=== PATIENT | male | born 1935 | race Caucasian/White ===

== ENCOUNTER 2017-05-14 08:30 | Inpatient (IN) | payer OTHER ==
[~2017-05-14] VITALS: Ht 152.4 cm; Wt 73.5 kg
[2017-05-14] MEDS ORDERED: AVAPRO150 MG PO (09:45)
[2017-05-14] MEDS ORDERED: JANUVIA100 MG PO (09:45)
[2017-05-14] MEDS ORDERED: NORVASC5 MG PO (09:46)
[2017-05-14] MEDS ORDERED: LIPIT PO (09:46)
[2017-05-14] MEDS ORDERED: ARICEPT PO (09:46)
[2017-05-14] MEDS ORDERED: AVAIR (09:48)
[2017-05-16] MEDS ORDERED: GABAPENTIN800 MG PO (13:49)
[2017-05-16] MEDS ORDERED: CLONAZEPAM1 MG PO (13:49)
[2017-05-16] MEDS ORDERED: PERCOCET 5-3251 EACH PO (13:49)
[2017-05-16] MEDS ORDERED: AMOXICILLIN875 MG PO (13:49)
[2017-05-16] MEDS ORDERED: DOCUSATE SODIU100 MG PO (13:49)
== END 2017-05-16 14:14 | disposition home or self-care (01) | DRG 455 ==
LOC: PED 05-15 05:15 → O/R 05-15 05:15 → PED 05-15 17:04 → SURH 05-20 08:30
PROVIDERS: Orthopaedic Surgery Orthopaedic Surgery of the Spine
PROC: 0SG1071 Fusion of 2 or more Lumbar Vertebral Joints with Autologous Tissue Substitute, Posterior Approach, Posterior Column, Open Approach (ICD-10-PCS; 2017-05-15)
PROC: 0ST20ZZ Resection of Lumbar Vertebral Disc, Open Approach (ICD-10-PCS; 2017-05-15)
PROC: 0SG10AJ Fusion of 2 or more Lumbar Vertebral Joints with Interbody Fusion Device, Posterior Approach, Anterior Column, Open Approach (ICD-10-PCS; 2017-05-15)
PROC: 07DS3ZZ Extraction of Vertebral Bone Marrow, Percutaneous Approach (ICD-10-PCS; 2017-05-15)
PROC: 0SG10A0 Fusion of 2 or more Lumbar Vertebral Joints with Interbody Fusion Device, Anterior Approach, Anterior Column, Open Approach (ICD-10-PCS; principal; 2017-05-15 10:15)
DX: M48.061 Spinal stenosis, lumbar region without neurogenic claudication (principal); M41.56 Other secondary scoliosis, lumbar region; M51.16 Intervertebral disc disorders with radiculopathy, lumbar region; I10 Essential (primary) hypertension; E11.9 Type 2 diabetes mellitus without complications